=== PATIENT | male | born 1990 | race Two or more races ===

== ENCOUNTER 2022-01-28 20:31 | Emergency (ER) | payer OTHER ==
[~2022-01-28] VITALS: Ht 172.7 cm; Wt 72.6 kg
[2022-01-28] MEDS ORDERED: ACETAMINOPHEN ES 500 MG TABLET ONE (21:42)
[2022-01-28] MEDS ORDERED: ACETAMINOPHEN ES 500 MG TABLET PO ONE (22:00)
[2022-01-28] MEDS ORDERED: NAPROXEN 250 MG TABLET ONE (22:28)
[2022-01-28] MEDS ORDERED: NAPROXEN 250 MG TABLET PO ONE (22:30)
--- NOTE | 2022-01-28 22:30 | NUR ---
Patient discharged to [facility] in stable condition. Written and verbal after care instructions given. Patient verbalizes understanding of instruction.
[2022-01-28 22:31] VITALS: BP 132/80
== END 2022-01-28 22:38 ==
LOC: ER 20:33
DX: S63.064A Dislocation of metacarpal (bone), proximal end of right hand, initial encounter (principal); Z60.2 Problems related to living alone; Y08.89XA Assault by other specified means, initial encounter; Y93.89 Activity, other specified; Y92.89 Other specified places as the place of occurrence of the external cause; Y99.8 Other external cause status
CPT/HCPCS: 73110; 73130-TC